=== PATIENT | female | born 1985 | race Caucasian/White ===

== ENCOUNTER 2018-05-24 17:19 | Observation (INO) | payer OTHER ==
[~2018-05-24] VITALS: Ht 158 cm; Wt 66.2 kg
[~2018-05-24 17:19] MED LIST: FERR-89 PO; IBUP-2070 PO; PREN-134 PO
[2018-05-24 18:15] VITALS: BP 107/74
== END 2018-05-24 19:25 | disposition home or self-care (01) ==
LOC: 4S 17:19
PROVIDERS: ADMIT Obstetrics & Gynecology; ATTEND Obstetrics & Gynecology
DX: O62.9 Abnormality of forces of labor, unspecified (principal); Z3A.38 38 weeks gestation of pregnancy
CPT/HCPCS: 59025